=== PATIENT | female | born 1960 | race Caucasian/White ===

== ENCOUNTER 2022-03-12 14:25 | Emergency (ER) | payer OTHER | END 2022-03-12 14:56 | disposition home or self-care (01) | LOC: FER 14:25 | DX: G43.909 Migraine, unspecified, not intractable, without status migrainosus (principal); I10 Essential (primary) hypertension; J45.909 Unspecified asthma, uncomplicated; Z88.0 Allergy status to penicillin; Z88.1 Allergy status to other antibiotic agents; Z79.899 Other long term (current) drug therapy | CPT/HCPCS: 99283 ==

== ENCOUNTER 2022-07-26 14:45 | Emergency (ER) | payer OTHER ==
[2022-07-26 15:37] LABS: BASOPHIL 0.4 % (0-2); HCT 40.1 % (37.0-47.0); HGB 13.1 g/dl (12.5-16.0); LYMPHOCYTE 14.6 % (15-48); MCH 30.9 pg (25.0-31.0); MCHC 32.7 g/dL (32.0-36.0); MCV 94.6 fL (78.0-100.0); MONOCYTE 7.4 % (0-12); MPV 10.4 fL (6.0-9.5); NRBC 0; PLT 246 K/uL (150-400); RBC 4.24 M/uL (4.20-5.40); RDW 12.7 % (11.5-14.0); WBC 10.1 K/uL (4.0-10.5)
[2022-07-26 15:57] LABS: BUN/CREAT RATIO (CALC) 23.3 RATIO; CREATININE 0.86 mg/dL (0.51-0.95); POTASSIUM 3.6 mmol/L (3.5-5.1)
[2022-07-26 17:10] LABS: BILIRUBIN NEGATIVE (NEGATIVE); BLOOD 3+ Ery/uL (NEGATIVE); CLARITY CLEAR (CLEAR); COLOR YELLOW (YELLOW); GLUCOSE (U) NORMAL (NORMAL); LEUKOCYTES TRACE Leu/uL (NEGATIVE); NITRITE NEGATIVE (NEGATIVE); PROTEIN 2+ mg/dL (NEGATIVE); SPECIFIC GRAVITY 1.025 (1.001-1.030); UROBILINOGEN 0.2 mg/dL (0.2-1.0)
[2022-07-26 17:17] LABS: AMORPHOUS URATES CRYSTALS MODERATE; BACTERIA TRACE; MUCOUS MODERATE; URINARY RBC 20-50
== END 2022-07-26 17:40 | disposition home or self-care (01) ==
LOC: FER 14:45
PROVIDERS: Nurse Practitioner Family
DX: N13.2 Hydronephrosis with renal and ureteral calculous obstruction (principal); B37.0 Candidal stomatitis; I10 Essential (primary) hypertension; Z87.442 Personal history of urinary calculi; Z88.0 Allergy status to penicillin; Z88.1 Allergy status to other antibiotic agents; Z91.041 Radiographic dye allergy status; Z79.899 Other long term (current) drug therapy
CPT/HCPCS: 36415; 80048; 81001; 85025; 87088; J2270; J2405; J7030

== ENCOUNTER 2022-07-26 22:27 | Emergency (ER) | payer OTHER | END 2022-07-26 23:59 | disposition home or self-care (01) | LOC: FER 22:27 | DX: R10.9 Unspecified abdominal pain (principal); I10 Essential (primary) hypertension; Z96.0 Presence of urogenital implants; Z87.442 Personal history of urinary calculi | CPT/HCPCS: J1170; J1885 ==